=== PATIENT | male | born 1995 | race Caucasian/White ===

== ENCOUNTER 2017-04-04 09:26 | Emergency (ER) | payer BC, OTHER ==
[~2017-04-04] VITALS: Ht 172.7 cm; Wt 70.0 kg
[~2017-04-04 09:26] MED LIST: MILKSUS5 PO; OMEP20TA39 PO
[2017-04-04 09:28] VITALS: BP 141/98; PULSE 77; RESP 15; TEMP 98.2; O2SAT 99
[2017-04-04 10:46] VITALS: BP 140/64; PULSE 60; RESP 15; TEMP 98; O2SAT 100
--- NOTE | 2017-04-04 10:51 | PD ---
HPI Chief Complaint: Skin Problem Time Seen by Provider: 10:51 Travel History International Travel<30 days: No Contact w/Intl Traveler<30days: No Traveled to known affect area: No History of Present Illness HPI 21 YO M presents to the ED requesting cast removal from the left hand. He states that that cast has gotten wet and is irritating. Endorses a small area of irritation on the anterior aspect of the forearm. Patient states that he had a scaphoid fracture and surgery in [place] in February. He states that he is to be casted until April. Denies numbness or tingling. States that he is going to [place] later this month. PFSH Past Medical History Gastrointestinal Disorders: No Implanted Vascular Access Dvce: No Immunizations Current: Yes Past Surgical History Other Surgery: No Social History Alcohol Use: Yes (OCCASSIONAL ) Tobacco Use: No Substance Use: No Allergies-Medications (Allergen,Severity, Reaction): Coded Allergies: No Known Allergies (Verified , 01/06/14) Reported Meds & Prescriptions Reported Meds & Active Scripts Active Keflex (Cephalexin) 500 Mg Cap 500 Mg PO Q6H 10 Days Bactrim DS (Sulfamethoxazole-Trimethoprim) 800-160 Mg Tab 1 Tab PO BID Review of Systems Except as stated in HPI: all other systems reviewed are Neg Physical Exam Narrative GENERAL: Well-nourished, well-developed white male in NAD. SKIN: Focused skin assessment warm/dry. There are two subcentimeter areas of abrasion on the anterior aspect of the left forearm, at the distal aspect of the fiberglass cast. The short arm thumb spica is in good shape. HEAD: Normocephalic. EYES: No scleral icterus. No injection or drainage. NECK: Supple, trachea midline. No JVD or lymphadenopathy. CARDIOVASCULAR: Regular rate and rhythm without murmurs, gallops, or rubs. RESPIRATORY: Breath sounds equal bilaterally. No accessory muscle use. GASTROINTESTINAL: Abdomen soft, non-tender, nondistended. MUSCULOSKELETAL: No cyanosis, or edema. Patient is able to flex and extend the fingers of the LEFT hand, neurovascularly intact. BACK: Nontender without obvious deformity. No CVA tenderness. Data Data Last Documented VS Vital Signs Date Time Temp Pulse Resp B/P Pulse Ox O2 Delivery O2 Flow Rate FiO2 04/04/17 11:33 68 16 99 04/04/17 10:46 98.0 140/64 Room Air MDM Medical Decision Making Medical Screen Exam Complete: Yes Emergency Medical Condition: Yes Differential Diagnosis scaphoid fracture versus medical unit secretary failure versus abrasion versus cellulitis versus cast discomfort versus other Narrative Course 21 YO M presents to the ED requesting cast removal from the left hand. He states that that cast has gotten wet and is irritating. Endorses a small area of irritation on the anterior aspect of the forearm. Patient states that he had a scaphoid fracture and surgery in [place] in February. He states that he is to be casted until April. Denies numbness or tingling. States that he is going to [place] later this month. Vitals reviewed. There are 2 small abrasions on the anterior aspect of the distal short thumb spica, but the cast itself maintains its integrity. Digits are neurovascularly intact. I advised the patient that I would not replace the cast today. I did prescribe him Bactrim and Keflex to take if his his abrasions show any signs of infection. I advised him to pad the cast where it is rubbing and call his hand surgeon in [place] for further recommendations. He indicated understanding of the instructions and is agreeable to the care plan .He is stable and discharged home. Diagnosis Primary Impression: Abrasion forearm Additional Impressions: Cast discomfort Immobilizing cast in place Referrals: Orthopedist Patient Instructions: Cast Care (ED), General Instructions Additional Instructions: Rest, hydrate. Place a soft cloth or dressing under the cast to protect the skin. Begin antibiotics of signs of infection develop. Call your orthopedic surgeon for recommendations regarding your cast problems. Return to the ED for any urgent or emergent medical condition. Med/Other Pt SpecificInfo: Prescription(s) given Scripts Cephalexin (Keflex)500 Mg [id number] Mg PO Q6H 10 Days Ref 0 Prov:Shelia Lozano MD 04/04/17 Sulfamethoxazole-Trimethoprim (Bactrim DS)800-160 Mg Tab1 Tab PO BID #14 TAB Ref 0 Prov:Shelia Lozano MD 04/04/17 Disposition: 01 DISCHARGE HOME Condition: Stable Rachel Rosenthal Apr 04, 2017 10:51
[2017-04-04] MEDS ORDERED: CEPH-460 PO (11:05)
[2017-04-04] MEDS ORDERED: BACT800T5 PO (11:05)
== END 2017-04-04 11:45 | disposition home or self-care (01) ==
LOC: NEPD 09:26
DX: S50.812A Abrasion of left forearm, initial encounter (principal); X58.XXXA Exposure to other specified factors, initial encounter; Y93.89 Activity, other specified; Y92.89 Other specified places as the place of occurrence of the external cause; Y99.8 Other external cause status
CPT/HCPCS: 99284